=== PATIENT | female | born 1995 | race African-American/Black ===

== ENCOUNTER 2025-01-04 12:22 | Emergency (ER) | payer OTHER, SELFPAY ==
[2025-01-04 12:48] VITALS: BP 122/68; PULSE 85; RESP 18; TEMP 36.8; O2SAT 99; BMI 29.9
--- NOTE | 2025-01-04 14:05 | ED_ITS ---
<Statement entered by Demetrio Street MD - 01/04/25 15:44> I was present in the department and available for consultation at the time the patient was seen HPI - Skin/Abscess/Foreign Bdy General Chief complaint: Skin/Abscess/Foreign Body Stated complaint: Infected cyst, right inner thigh Time Seen by Provider: 01/04/25 13:46 Source: patient Mode of arrival: Ambulatory Limitations: no limitations History of Present Illness HPI narrative: Ms. 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 Patient states last she had a small ingrown hair/bump in her bikini area, on the proximal right inner thigh. This area was fine on Saturday but then on Saturday started becoming more red and painful. Patient states that she has to wear tight pants for work and this has been very irritating. She denies fevers, chills, flu-like symptoms, prior MRSA or HS. No dysuria or vaginal pain. No medication allergies. Related Data Previous Rx's ?Medication ?Instructions ?Recorded doxycycline hyclate 100 mg capsule 100 mg PO BID 7 day s #14 caps 01/04/25 Allergies Allergy/AdvReac Type Severity Reaction Status Date / Time No Known Drug Allergies Allergy Verified 01/04/25 12:48 Review of Systems Review of Systems ROS Unobtainable: All systems reviewed & are unremarkable except as noted in HPI and below Patient History Social History Smoking Status: Former smoker Smoking Status: Former smoker Exam Narrative Exam Narrative: GENERAL: 29 year old patient appears stated age. Well-developed patient, in no acute distress. HEAD: Atraumatic. Normocephalic. No scleral icterus. No injection or drainage. ENT: Nose without bleeding, purulent drainage. Throat without erythema, tonsillar hypertrophy or exudate. Airway patent. NECK: Trachea midline. Cervical ROM intact. CARDIOVASCULAR: Regular rate RESPIRATORY: ?Nonlabored respirations. ?Speaking in clear, full sentences. EXTREMITIES: On the proximal right inner thigh, distal to the bikini line, there is a 2 cm firm tender mass with mild overlying erythema. No induration or fluctuance. No streaking erythema. NEURO: AOx3. ?Clear speech. ?Moves all 4 extremities appropriately. Initial Vital Signs Initial Vital Signs: Vital Signs Temperature 98.2 F 01/04/25 12:48 Pulse Rate 85 01/04/25 12:48 Respiratory Rate 18 01/04/25 12:48 Blood Pressure 122/68 01/04/25 12:48 Pulse Oximetry 99 01/04/25 12:48 Oxygen Delivery Method Room Air 01/04/25 12:48 Course Vital Signs Vital signs: Vital Signs - 8 hr 01/04/25 12:48 Temperature 98.2 F Pulse Rate 85 Respiratory Rate 18 Blood Pressure 122/68 Pulse Oximetry 99 Oxygen Delivery Method Room Air MDM - Skin/Abscess/Foreign Bdy Medical Records Medical records narrative: None available for review MDM Narrative Medical decision making narrative: 29-year-old female with no reported past medical history, active duty [place], who presents to the emergency department for ?infected cyst right inner thigh ?x5 days. Differential diagnosis includes but is not limited to cellulitis, lymphadenopathy, abscess, etc. On exam the patient is in no acute distress, nontoxic-appearing, all vital signs within normal limits, SIRS negative. On patient's proximal right inner thigh she has a 2 cm tender firm mass with mild overlying erythema. This area is not indurated or fluctuant, does not feel amenable to drainage. Does appear to be cellulitic with underlying inflammation, possible lymphadenopathy. At this time recommended antibiotics, warm compress, Sitz bath, keeping area clean with antibacterial soap. We did discuss however that if this area gets worse or starts to come to a head that she would need to return to the ER for drainage or further management. Patient verbalized understanding of all information is agreeable to this plan. Antibiotics sent to pharmacy of choice. She is ambulatory and stable for discharge home. Discharge Plan Departure Patient Disposition: Home Clinical Impression: Abscess or cellulitis of groin Instructions: DI for Cellulitis -- Adult, DI for Skin Abscess Activity Restrictions/Additional Instructions: Dear Ms. Leger, Thank you for coming to the emergency department. Today you were evaluated for infection on your right inner thigh. As we discussed, this area is extremely firm and inflamed and at this time does not seem amenable to drainage. I would instead like you to take antibiotics and perform warm compresses to this area, clean the area with antibacterial soap such as dial soap or Hibiclens, and use warm Sitz baths as well. If this area appears to become fluid-filled or moved the surface, please return to the ER immediately for drainage. If the area gets worse at all, you develop fevers, spreading redness or other concerns, return to the ER. Please take Ibuprofen (Motrin/Advil) or Acetaminophen (Tylenol) for pain. These are available over the counter. You may take Ibuprofen 600 mg every 8 hours with food for pain. You may also take Acetaminophen 650 mg every 4-6 hours for pain. Do not exceed 3000 mg of Tylenol a day as this can cause liver damage. Do not drink alcohol with either of these medications. Please follow up with your primary care doctor within the next 2-3 days for ER follow-up. (If you do not have a PCP you can call [phone]. ?to schedule an appointment with an [facility] Primary Care Provider) IF YOU DEVELOP ANY NEW OR WORSENING SYMPTOMS, RETURN TO THE ER! Please read the attached instructions, they highlight more specific treatments and interventions for you at home. Thank you for letting me participate in your care, Nola Leiva PA-C Prescriptions: New doxycycline hyclate 100 mg capsule 100 mg PO BID 7 Days Qty: 14 0RF Stand Alone Forms: Patient Portal/API, Work Release Note
== END 2025-01-04 14:45 | disposition home or self-care (01) ==
PROVIDERS: Emergency Provider Physician Assistant
DX: L02.214 Cutaneous abscess of groin (principal); L03.314 Cellulitis of groin
CPT/HCPCS: 99281

== ENCOUNTER 2025-01-08 15:56 | Emergency (ER) | payer OTHER, SELFPAY ==
[2025-01-08 16:21] VITALS: BP 115/78; PULSE 89; RESP 18; TEMP 37.1; O2SAT 100; BMI 29.9
--- NOTE | 2025-01-08 17:46 | ED_ITS ---
HPI - Skin/Abscess/Foreign Bdy <Nola Leiva PA-C - Last Filed: 01/08/25 19:42> General Chief complaint: Skin/Abscess/Foreign Body Stated complaint: returning per advice from mon visit, infection Time Seen by Provider: 01/08/25 16:08 Source: patient Mode of arrival: Ambulatory Limitations: no limitations History of Present Illness HPI narrative: Ms. Leger is a very pleasant 29-year-old female, active duty [place], with no reported past medical history presents to the emergency department for right inner thigh abscess follow up. I saw the patient on 01/04/2025 and at that time she had what appeared to be the development of an abscess in the right groin/proximal thigh. She was started on doxycycline and has had improvement in this area however it is now starting to come to the surface and as I recommended she return to the ER for further evaluation and possible I&D. She denies any fevers, chills, redness, drainage. Related Data Previous Rx's ?Medication ?Instructions ?Recorded doxycycline hyclate 100 mg capsule 100 mg PO BID 7 day s #14 caps 01/04/25 doxycycline hyclate 100 mg capsule 100 mg PO BID 3 day s #6 caps 01/08/25 Allergies Allergy/AdvReac Type Severity Reaction Status Date / Time No Known Drug Allergies Allergy Verified 01/08/25 16:21 Review of Systems <Nola Leiva PA-C - Last Filed: 01/08/25 19:42> Review of Systems ROS Unobtainable: All systems reviewed & are unremarkable except as noted in HPI and below Patient History <Nola Leiva PA-C - Last Filed: 01/08/25 19:42> Social History Smoking Status: Never smoker Smoking Status: Never smoker Exam <Nola Leiva PA-C - Last Filed: 01/08/25 19:42> Narrative Exam Narrative: GENERAL: 29 year old patient appears stated age. Well-developed patient, in no acute distress. HEAD: Atraumatic. Normocephalic. EYES: No scleral icterus. No injection or drainage. NECK: Trachea midline. Cervical ROM intact. CARDIOVASCULAR: Regular rate RESPIRATORY: ?Nonlabored respirations. ?Speaking in clear, full sentences. ?Clear to auscultation. GASTROINTESTINAL: Abdomen soft, non-tender, nondistended. EXTREMITIES: On the proximal right inner thigh just distal to the groin fold there is a 2 cm fluctuant area of swelling. No erythema, no active drainage, no induration. NEURO: AOx3. ?Clear speech. ?Moves all 4 extremities appropriately. SKIN: No rash or erythema of visible areas. Initial Vital Signs Initial Vital Signs: Vital Signs Temperature 98.8 F 01/08/25 16:21 Pulse Rate 89 01/08/25 16:21 Respiratory Rate 18 01/08/25 16:21 Blood Pressure 115/78 01/08/25 16:21 Pulse Oximetry 100 01/08/25 16:21 Oxygen Delivery Method Room Air 01/08/25 16:21 <Salima Miner DO - Last Filed: 01/08/25 23:39> Initial Vital Signs Initial Vital Signs: Vital Signs Temperature 98.8 F 01/08/25 16:21 Pulse Rate 89 01/08/25 16:21 Respiratory Rate 18 01/08/25 16:21 Blood Pressure 115/78 01/08/25 16:21 Pulse Oximetry 100 01/08/25 16:21 Oxygen Delivery Method Room Air 01/08/25 16:21 Procedures <Nola Leiva PA-C - Last Filed: 01/08/25 19:42> Abscess I/D I&D #1: Site: lower extremity (inner thigh) Side (if applicable): right Local Anesthetic: lidocaine 1% and with epi Amount of anesthesia used (mL): 3 Technique: incised with #11 blade Amount of fluid expressed (mL): 2 Irrigation: Yes Packing used?: none Course <Nola Leiva PA-C - Last Filed: 01/08/25 19:42> Orders Ordered: ED Orders 01/08/25 19:10 Wound Culture and Gram Stain Stat Discontinued Medications Acetaminophen (Acetaminophen 325 Mg Tablet) 975 mg PO NOW ONE Stop: 01/08/25 19:18 Last Admin: 01/08/25 19:50 Dose: 975 mg Documented By: ARTEM Ibuprofen (Ibuprofen 400 Mg Tablet) 400 mg PO NOW ONE Stop: 01/08/25 19:18 Last Admin: 01/08/25 19:50 Dose: 400 mg Documented By: ARTEM Lidocaine/Epinephrine (Lidocaine 1% W/Epi 10ml) 5 ml SUBCUT NOW ONE Stop: 01/08/25 18:34 Last Admin: 01/08/25 18:37 Dose: 5 ml Documented By: ARTEM Ondansetron HCl (Ondansetron 4 Mg Odt) 4 mg SL NOW ONE Stop: 01/08/25 19:38 Last Admin: 01/08/25 19:51 Dose: Not Given Documented By: SB Oxycodone HCl (Oxycodone Ir 5 Mg Tablet) 5 mg PO NOW ONE Stop: 01/08/25 19:38 Last Admin: 01/08/25 19:46 Dose: Not Given Documented By: SB Vital Signs Vital signs: Vital Signs - 8 hr 01/08/25 16:21 01/08/25 19:29 01/08/25 19:30 Temperature 98.8 F Pulse Rate 89 75 Respiratory Rate 18 Blood Pressure 115/78 115/72 Pulse Oximetry 100 98 Oxygen Delivery Method Room Air 01/08/25 19:56 Temperature 98.1 F Pulse Rate Respiratory Rate Blood Pressure Pulse Oximetry Oxygen Delivery Method <Salima Miner, - Last Filed: 01/08/25 23:39> Orders Ordered: ED Orders 01/08/25 19:10 Wound Culture and Gram Stain Stat Discontinued Medications Acetaminophen (Acetaminophen 325 Mg Tablet) 975 mg PO NOW ONE Stop: 01/08/25 19:18 Last Admin: 01/08/25 19:50 Dose: 975 mg Documented By: ARTEM Ibuprofen (Ibuprofen 400 Mg Tablet) 400 mg PO NOW ONE Stop: 01/08/25 19:18 Last Admin: 01/08/25 19:50 Dose: 400 mg Documented By: ARTEM Lidocaine/Epinephrine (Lidocaine 1% W/Epi 10ml) 5 ml SUBCUT NOW ONE Stop: 01/08/25 18:34 Last Admin: 01/08/25 18:37 Dose: 5 ml Documented By: ARTEM Ondansetron HCl (Ondansetron 4 Mg Odt) 4 mg SL NOW ONE Stop: 01/08/25 19:38 Last Admin: 01/08/25 19:51 Dose: Not Given Documented By: ARTEM Oxycodone HCl (Oxycodone Ir 5 Mg Tablet) 5 mg PO NOW ONE Stop: 01/08/25 19:38 Last Admin: 01/08/25 19:46 Dose: Not Given Documented By: SB Vital Signs Vital signs: Vital Signs - 8 hr 01/08/25 16:21 01/08/25 19:29 01/08/25 19:30 Temperature 98.8 F Pulse Rate 89 75 Respiratory Rate 18 Blood Pressure 115/78 115/72 Pulse Oximetry 100 98 Oxygen Delivery Method Room Air 01/08/25 19:56 Temperature 98.1 F Pulse Rate Respiratory Rate Blood Pressure Pulse Oximetry Oxygen Delivery Method MDM - Skin/Abscess/Foreign Bdy <Nola Leiva PA-C - Last Filed: 01/08/25 19:42> Medical Records Attestation: I reviewed the patient's medical records. MDM Narrative Medical decision making narrative: 29-year-old female, active duty [place], with no reported past medical history presents to the emergency department for right inner thigh abscess follow up. Differential diagnosis includes but isn't limited to abscess, cellulitis, lymphadenopathy, etc. On exam patient is in no acute distress, nontoxic-appearing, all vital signs within normal limits. I saw the patient on 01/04/2025 diagnosed her with cellulitis/abscess of the right groin at that time, area was not amenable to drainage at that time, she was placed on doxycycline which she has been taking with great improvement in pain however the swelling has started to move towards the surface so she returned as recommended for I&D. Today this abscess is quite fluctuant and ready for drainage. No erythema, warmth or streaking. No induration. Patient gave verbal consent to I and D. Area was cleansed, anesthetized, incised with purulent drainage. Wound culture obtained. We will treat postprocedural pain with ibuprofen, Tylenol, oxycodone, patient has a ride home. She was initially prescribed 7 days of doxycycline, we will extend this 3 additional days for total of 10 days. Recommended wound care, warm compresses, PCP follow up and strict ER return precautions. Patient verbalized understanding of all information agreeable with the plan. She is stable for discharge home. Discharge Plan Departure Patient Disposition: Home Clinical Impression: Abscess or cellulitis of groin Instructions: DI for Skin Abscess Activity Restrictions/Additional Instructions: Dear Ms. Leger, Thank you for coming to the emergency department. Today you had a drainage to an abscess on your right inner thigh. Please keep the dressing on for the next 12-24 hours. After this time please remove the dressing and clean the wound with warm soapy water. Please keep this wound covered at all time with clean bandage/gauze. You may use warm compresses over the bandage to help with drainage. Please take Ibuprofen (Motrin/Advil) or Acetaminophen (Tylenol) for pain. These are available over the counter. You may take Ibuprofen 600 mg every 8 hours with food for pain. You may also take Acetaminophen 650 mg every 4-6 hours for pain. Do not exceed 3000 mg of Tylenol a day as this can cause liver damage. Do not drink alcohol with either of these medications. Please return to the emergency department develop any new or worsening symptoms, fevers, severe pain or other concerns. Please complete the full 10 days of antibiotics, 3 additional days have been prescribed to you. Please follow up with your primary care doctor within the next 2-3 days for ER follow-up. (If you do not have a PCP you can call [phone]. ?to schedule an appointment with an [facility] Primary Care Provider) IF YOU DEVELOP ANY NEW OR WORSENING SYMPTOMS, RETURN TO THE ER! Please read the attached instructions, they highlight more specific treatments and interventions for you at home. Thank you for letting me participate in your care, Nola Leiva PA-C Prescriptions: New doxycycline hyclate 100 mg capsule 100 mg PO BID 3 Days Qty: 6 0RF Rx Instructions: 3 additional days (10 days total) No Action doxycycline hyclate 100 mg capsule 100 mg PO BID 7 Days Qty: 14 0RF Stand Alone Forms: Patient Portal/API, Work Release Note ED Sign-out <Salima Miner DO - Last Filed: 01/08/25 23:39> Cosign ED Attending Jhony Attestation: I was immediately available in the department for consultation.
[2025-01-08] MEDS: LIDOCAINE 1% W/EPI 10ML 5 ML SUBCUT (18:37)
[2025-01-08 19:29] VITALS: BP 115/72
[2025-01-08 19:30] VITALS: PULSE 75; O2SAT 98
[2025-01-08] MEDS: IBUPROFEN 400 MG TABLET PO (19:50)
[2025-01-08] MEDS: ACETAMINOPHEN 325 MG TABLET 975 MG PO (19:50)
[2025-01-08 19:56] VITALS: TEMP 36.7
== END 2025-01-08 19:56 | disposition home or self-care (01) ==
PROVIDERS: Emergency Provider Physician Assistant
DX: L02.214 Cutaneous abscess of groin (principal)
CPT/HCPCS: 10060; 87070; 87075; 87205; 99283